=== PATIENT | female | born 1940 | race Caucasian/White ===

== ENCOUNTER → 2016-12-27 | Outpatient (CLI) | payer MEDICARE, OTHER ==
[~2016-12-27] MED LIST: ALDACTONE25 MG PO; BYSTOLIC10 MG PO; BYSTOLIC5 MG PO; CHLORTHALIDONE25 MG PO; CLONAZEPAM0.125 MG PO; COZAAR100 MG PO; COZAAR25 MG PO; FUROSEMIDE20 MG PO; KLONOPIN0.5 MG PO; LASIX20 MG PO; LEVAQUIN500 MG PO; LINZESS145 MCG PO; NEURONTIN100 MG PO; NEURONTIN300 MG PO; NORCO 325-5 MG1 TAB PO; PRADAXA150 MG PO; PRADAXA75 MG PO; PRAVACHOL40 MG PO; PRAVASTATIN SOD10 MG PO; ROXICODONE5 MG PO; SINEMET CR 25-11 TAB PO; SYNTHROID100 MCG PO; TYLENOL325 MG PO; ULTRAM50 MG PO; VITAMIN D31000 UNI1 PO; ZITHROMAX250 MG PO
== END | disposition short-term general hospital (02) ==
LOC: CLCARD 11:32
DX: I25.10 Atherosclerotic heart disease of native coronary artery without angina pectoris (principal); I50.9 Heart failure, unspecified; I48.2 Chronic atrial fibrillation; I10 Essential (primary) hypertension

== ENCOUNTER → 2017-01-22 | Outpatient (CLI) | payer MEDICARE, OTHER | END | disposition short-term general hospital (02) | LOC: CLORTH 09:52 | DX: Z47.1 Aftercare following joint replacement surgery (principal); Z96.652 Presence of left artificial knee joint; M17.11 Unilateral primary osteoarthritis, right knee ==

== ENCOUNTER → 2017-03-19 | Outpatient (CLI) | payer MEDICARE, OTHER | END | disposition short-term general hospital (02) | LOC: CLORTH 11:30 | DX: M17.11 Unilateral primary osteoarthritis, right knee (principal) ==

== ENCOUNTER → 2017-04-16 | Outpatient (CLI) | payer MEDICARE, OTHER | END | disposition short-term general hospital (02) | LOC: CLORTH 11:41 | DX: Z47.1 Aftercare following joint replacement surgery (principal); M79.89 Other specified soft tissue disorders; Z96.651 Presence of right artificial knee joint ==